=== PATIENT | female | born 1980 | race Caucasian/White ===

== ENCOUNTER 2020-07-27 11:50 | Outpatient (REF) | payer OTHER, SELFPAY ==
[2020-07-27 12:03] LABS: COVID-19 Test Positive (Negative)
== END 2020-07-27 11:51 | disposition home or self-care (01) ==
LOC: HO.EMPCOV 11:50
PROVIDERS: Visit Provider Internal Medicine
DX: Z20.822 Contact with and (suspected) exposure to COVID-19 (principal)
CPT/HCPCS: 36415; 87635; C9803

== ENCOUNTER → 2021-03-11 13:36 | Outpatient (BNVA) | payer MEDICAID, SELFPAY | PROVIDERS: PCP Internal Medicine | DX: Z20.822 Contact with and (suspected) exposure to COVID-19 (principal) | CPT/HCPCS: 36415; 87635 ==